=== PATIENT | male | born 1960 | race African-American/Black ===

== ENCOUNTER 2016-11-27 07:16 | Day surgery (SDC) | payer OTHER, MEDICAID ==
[2016-11-27] MEDS ORDERED: MIDAZOLAM HCL 5 MG/5 ML VIAL ONE (07:36)
[2016-11-27] MEDS ORDERED: MEPERIDINE HCL/PF 100 MG/ML AMP ONE ×2 (07:36→07:37)
[2016-11-27] MEDS ORDERED: SIMETHICONE 40 MG/0.6 ML ML ONE (08:06)
[2016-11-27] MEDS: MIDAZOLAM HCL 5 MG/5 ML VIAL ONE ×3 (08:25→08:32)
[2016-11-27 12:36] VITALS: BP 136/79; PULSE 62; RESP 16
== END 2016-11-27 10:45 | disposition home or self-care (01) ==
LOC: SDS 07:16
PROVIDERS: ATTEND Internal Medicine Gastroenterology
DX: D12.3 Benign neoplasm of transverse colon (principal); K57.30 Diverticulosis of large intestine without perforation or abscess without bleeding; K64.8 Other hemorrhoids
CPT/HCPCS: 36415; 43239; 45380; 87081; 88305; 88312; 88313; J2175; J2250